=== PATIENT | male | born 1970 | race Caucasian/White ===

== ENCOUNTER → 2016-06-22 | Outpatient (CLI) | payer BC ==
[2016-06-22 13:08] VITALS: BP 134/64; PULSE 55; RESP 16; TEMP 97.7; BMI 32.5
[2016-06-22 13:58] LABS: CH 32.2; CHCM 34.8; HCT 40.4 % (39.0-53.0); HDW 2.54; HGB 13.5 gm/dL (13.0-17.5); MCH 31.1 pg (25.0-35.0); MCHC 33.5 g/dL (31.0-37.0); MCV 92.7 fL (80.0-100.0); Mean Platelet Volume 8.1; RBC 4.36 m/uL (4.30-5.90); RDW 12.5 % (11.5-15.5); WBC 6.8 k/uL (3.8-10.6)
[2016-06-22 14:10] LABS: ALT 24 U/L (21-72); AST 18 U/L (17-59); Alkaline Phosphatase 104 U/L (38-126); Anion Gap 10 mmol/L; Blood Urea Nitrogen 13 mg/dL (9-20); Calcium 9.8 mg/dL (8.4-10.2); Carbon Dioxide 31 mmol/L (22-30); Chloride 104 mmol/L (98-107); Glucose 154 mg/dL (74-99); Non-African American GFR(MDRD) >60 (>60 ml/min/1.73 sqM); Potassium 4.5 mmol/L (3.5-5.1); Sodium 145 mmol/L (137-145); Total Bilirubin 0.9 mg/dL (0.2-1.3); Total Protein 7.8 g/dL (6.3-8.2)
[2016-06-22 14:56] LABS: Vitamin B12 685 pg/mL (239-931)
--- NOTE | 2016-06-22 16:57 | P.HPBAR ---
Bariatric H&P - History & Physicial H&P Date: 06/22/16 History & Physicial: Visit/CC: Sleeve follow-up Patient initial contact: Initial weight: 102.648 kg Initial weight in pounds: 226.30 Height: 6 ft Initial BMI: 30.7 Last weight: Current weight: 109.089 kg Current weight in pounds: 240.00 Current BMI: 32.5 [place] body weight (based on NIH guidelines): 80.739 kg Excess body weight loss: The patient is a 45 year-old M who presents for Bariatric Assessment. The patient presents today for sleeve follow-up. He is doing quite well. He has had some minimal GERD. Past Medical History Past Medical History: Diabetes Mellitus, GERD/Reflux, Hyperlipidemia, Sleep Apnea/CPAP/BIPAP Additional Past Medical History / Comment(s): BRONCHOSCOPY FOR SARCOIDOSIS, GOUT , SLEEP APNEA WITH C-PAP MACHINE, CURRENTLY HAS A COUGH AND RUNNY NOSE- TESSILON PRESCRIBED BY ITALO Recio- INSTRUCTED PT TO CALL DR PACHECO AND INFORM HIM OFTHIS. PT STATES HE HAD CHESTPAIN ON 04/14 AND WENT TO [facility] AND WAS ADMITTED -STATES THEY RULED OUT HEART PROBLEMS. History of Any Multi-Drug Resistant Organisms: None Reported Past Surgical History: Orthopedic Surgery Additional Past Surgical History / Comment(s): BRONCHOSCOPY, 3 KNEE SURGERYS Past Anesthesia/Blood Transfusion Reactions: No Reported Reaction Past Psychological History: No Psychological Hx Reported Smoking Status: Never smoker Past Alcohol Use History: Occasional Past Drug Use History: None Reported - Past Family History Father Family Medical History: Cancer Additional Family Medical History / Comment(s): PROSTATE CA Surgical - Exam Vital Signs Temp Pulse Resp BP 97.7 F 55 L 16 134/64 06/22/16 13:05 06/22/16 13:05 06/22/16 13:05 06/22/16 13:05 - General well developed, no distress - Eyes PERRL - ENT normal pinna - Neck no masses - Respiratory normal expansion - Cardiovascular Rhythm: regular Results - Labs 06/22/16 13:36 06/22/16 13:36 Abnormal Lab Results - Last 24 Hours (Table) 06/22/16 Range/Units 13:36 Carbon Dioxide 31 H (22-30) mmol/L Glucose 154 H (74-99) mg/dL Diabetes panel 06/22/16 06/22/16 Range/Units 13:36 13:36 Sodium 145 (137-145) mmol/L Potassium 4.5 (3.5-5.1) mmol/L Chloride 104 (98-107) mmol/L Carbon Dioxide 31 H (22-30) mmol/L BUN 13 (9-20) mg/dL Creatinine 0.70 (0.66-1.25) mg/dL Glucose 154 H (74-99) mg/dL Hemoglobin A1c 6.0 (4.2-6.1) % Calcium 9.8 (8.4-10.2) mg/dL AST 18 (17-59) U/L ALT 24 (21-72) U/L Alkaline Phosphatase 104 (38-126) U/L Total Protein 7.8 (6.3-8.2) g/dL Albumin 4.4 (3.5-5.0) g/dL Calcium panel 06/22/16 Range/Units 13:36 Calcium 9.8 (8.4-10.2) mg/dL Albumin 4.4 (3.5-5.0) g/dL Pituitary panel 06/22/16 Range/Units 13:36 Sodium 145 (137-145) mmol/L Potassium 4.5 (3.5-5.1) mmol/L Chloride 104 (98-107) mmol/L Carbon Dioxide 31 H (22-30) mmol/L BUN 13 (9-20) mg/dL Creatinine 0.70 (0.66-1.25) mg/dL Glucose 154 H (74-99) mg/dL Calcium 9.8 (8.4-10.2) mg/dL Adrenal panel 06/22/16 Range/Units 13:36 Sodium 145 (137-145) mmol/L Potassium 4.5 (3.5-5.1) mmol/L Chloride 104 (98-107) mmol/L Carbon Dioxide 31 H (22-30) mmol/L BUN 13 (9-20) mg/dL Creatinine 0.70 (0.66-1.25) mg/dL Glucose 154 H (74-99) mg/dL Calcium 9.8 (8.4-10.2) mg/dL Total Bilirubin 0.9 (0.2-1.3) mg/dL AST 18 (17-59) U/L ALT 24 (21-72) U/L Alkaline Phosphatase 104 (38-126) U/L Total Protein 7.8 (6.3-8.2) g/dL Albumin 4.4 (3.5-5.0) g/dL Bariatric Assessment & Plan Plan: Improving morbid obesity. Patient is doing quite well has lost significant weight. GERD is minimal and will be observed. Patient is currently being treated with Prilosec. Bariatric Checklist Checklist: Plan: Checklist: EGD: 1. Hiatal hernia: 2. H. Pylori: HgbA1c: Vitamin D: Smoking: Never smoker Primary care physician referral: lai ([facility]) Psychiatry clearance: Cardiology clearance: Sleep study: Diet journal: VTE risk score: VTE risk level: Rehab needs at discharge:
== END | disposition home or self-care (01) ==
LOC: BARWHC3 12:43
PROVIDERS: ATTEND Surgery
DX: K21.9 Gastro-esophageal reflux disease without esophagitis (principal); E66.01 Morbid (severe) obesity due to excess calories; E89.1 Postprocedural hypoinsulinemia; E55.9 Vitamin D deficiency, unspecified
CPT/HCPCS: 36415; 80053; 82306; 82607; 83036; 85027; 99211

== ENCOUNTER → 2017-01-04 | Outpatient (CLI) | payer BC ==
[2017-01-04 15:25] VITALS: BP 131/72; PULSE 55; RESP 16; TEMP 97.5; BMI 32.9
--- NOTE | 2017-01-04 16:42 | P.HPBAR ---
Bariatric H&P - History & Physicial H&P Date: 01/04/17 History & Physicial: Visit/CC: sleeve follow-up Patient initial contact: Initial weight: 102.648 kg Initial weight in pounds: 226.30 Height: 6 ft Initial BMI: 30.7 Last weight: Current weight: 110.251 kg Current weight in pounds: 243.00 Current BMI: 32.9 [place] body weight (based on NIH guidelines): 80.739 kg Excess body weight loss: The patient is a 46 year-old M who presents for Bariatric Assessment. Patient presents today for sleeve gastrectomy fall. He is doing quite well. Since minimal GERD. He denies any significant dysphagia. His weight has remained stable. Past Medical History Past Medical History: Diabetes Mellitus, GERD/Reflux, Hyperlipidemia, Sleep Apnea/CPAP/BIPAP Additional Past Medical History / Comment(s): BRONCHOSCOPY FOR SARCOIDOSIS, GOUT , SLEEP APNEA WITH C-PAP MACHINE, CURRENTLY HAS A COUGH AND RUNNY NOSE- TESSILON PRESCRIBED BY ITALO Recio- INSTRUCTED PT TO CALL DR PACHECO AND INFORM HIM OFTHIS. PT STATES HE HAD CHESTPAIN ON 04/[address] [facility] AND WAS ADMITTED -STATES THEY RULED OUT HEART PROBLEMS. History of Any Multi-Drug Resistant Organisms: None Reported Past Surgical History: Orthopedic Surgery Additional Past Surgical History / Comment(s): BRONCHOSCOPY, 3 KNEE SURGERYS Past Anesthesia/Blood Transfusion Reactions: No Reported Reaction Past Psychological History: No Psychological Hx Reported Smoking Status: Never smoker Past Alcohol Use History: Occasional Past Drug Use History: None Reported - Past Family History Father Family Medical History: Cancer Additional Family Medical History / Comment(s): PROSTATE CA Surgical - Exam Vital Signs Temp Pulse Resp BP 97.5 F L 55 L 16 131/72 01/04/17 15:23 01/04/17 15:23 01/04/17 15:23 01/04/17 15:23 - General well developed, no distress - Eyes PERRL - ENT normal pinna - Respiratory normal expansion - Cardiovascular Rhythm: regular - Abdomen Abdomen: soft Bariatric Assessment & Plan Plan: Post sleeve yesterday. Patient's had no significant complaints. His GERD is minimal bleeding observed. He'll follow-up in 3 months. Bariatric Checklist Checklist: Plan: Checklist: EGD: 1. Hiatal hernia: 2. H. Pylori: HgbA1c: Vitamin D: Smoking: Never smoker Primary care physician referral: lai ([facility]) Psychiatry clearance: Cardiology clearance: Sleep study: Diet journal: VTE risk score: VTE risk level: Rehab needs at discharge:
== END | disposition home or self-care (01) ==
LOC: BARWHC3 14:52
PROVIDERS: ATTEND Surgery
DX: Z09 Encounter for follow-up examination after completed treatment for conditions other than malignant neoplasm (principal); E11.9 Type 2 diabetes mellitus without complications; K21.9 Gastro-esophageal reflux disease without esophagitis; E78.5 Hyperlipidemia, unspecified; Z98.84 Bariatric surgery status
CPT/HCPCS: 99211

== ENCOUNTER → 2017-04-26 | Outpatient (CLI) | payer BC ==
--- NOTE | 2017-04-26 18:02 | MR ---
EXAMINATION TYPE: MR lumbar spine wo con DATE OF EXAM: 04/26/2017 COMPARISON: NONE HISTORY: Radiculopathy CONTRAST: 0 mL intravenous Gadavist. TECHNIQUE: Multiplanar, multisequence images of the lumbar spine were acquired. FINDINGS: Cord terminates at the L1-L2 level. Superior endplate Schmorl's node formation is evident L1 and L2. Mild anterior loss of vertebral body height may be present L1, L2, and L3. Some posterior disc space narrowing at L2-3 is present as well as L1-2. Remaining disc heights are preserved. Disc d esiccation is present throughout the lumbar spine. L5-S1: Mild disc bulge has anterior thecal sac contact. No AP spinal canal stenosis is present. There is severe right and mild left foraminal narrowing L4-L5: Disc bulge has mild anterior thecal sac compression. This may be subtly greater into the right paracentral region. Additionally, on T2-weighted sequences there is increased signal within the bulg ing disc suggestive of an annular tear. AP spinal canal stenosis is not present. Facet hypertrophy li gamentum flavum laxity is present with some mild lateral canal narrowing. Foramen are patent. L3-L4: Disc bulge is present. This greater than left paracentral region. No AP spinal canal stenosis present. Mild facet hypertrophy and ligamentum flavum laxity is present. Neural foramen are patent. L2-L3: There is a subligamentous disc herniation extending inferior to the L3 endplate. This has mild anterior thecal sac flattening. No AP spinal canal stenosis is present. There is some extension into the right and to a lesser degree left foramen causing moderate foraminal narrowing without nerve hu t contact. L1-L2: Right paracentral disc bulge is present with mild to moderate anterior thecal sac compression. Left foramen is patent. There is mild narrowing of the right foramen. There is disc extension into t he inferior foramen as well as beyond the endplate of L2 compatible with subligamentous disc herniati on. T12-L1: No significant disc bulge or disc herniation. No spinal canal stenosis. No foraminal stenos is. IMPRESSION: 1. Disc bulge L4-5 slightly greater to the right paracentral region with mild anterior thecal sac com pression. Annular tears in the right paracentral region of this disc level. 2. L3-4 disc bulging with mild anterior thecal sac contact. 3. Subligamentous disc herniation L2-L3 with mild anterior thecal sac compression. 4. Right paracentral disc herniation with mild to moderate anterior thecal sac compression. 5. Severe right and mild left foraminal narrowing L5-S1. Additional foraminal narrowing due to mild t o moderate degree is present discussed above.
== END | disposition home or self-care (01) ==
LOC: RADMRIMAIN 09:38
PROVIDERS: ATTEND Family Medicine
DX: M99.73 Connective tissue and disc stenosis of intervertebral foramina of lumbar region (principal); M51.17 Intervertebral disc disorders with radiculopathy, lumbosacral region
CPT/HCPCS: 72148

== ENCOUNTER → 2017-06-21 | Outpatient (CLI) | payer BC ==
[2017-06-21 13:19] VITALS: BP 137/75; PULSE 50; RESP 15; TEMP 98.3; BMI 32.9
[2017-06-21 14:47] LABS: HGB 14.1 gm/dL (13.0-17.5); MCH 30.5 pg (25.0-35.0); MCHC 33.5 g/dL (31.0-37.0); MCV 91.1 fL (80.0-100.0); Mean Platelet Volume 7.8; Platelet Count 176 k/uL (150-450); RBC 4.61 m/uL (4.30-5.90); RDW 12.6 % (11.5-15.5); WBC 9.3 k/uL (3.8-10.6)
[2017-06-21 15:01] LABS: ALT 22 U/L (21-72); AST 20 U/L (17-59); Albumin 4.5 g/dL (3.5-5.0); Alkaline Phosphatase 123 U/L (38-126); Anion Gap 12 mmol/L; Blood Urea Nitrogen 17 mg/dL (9-20); Calcium 9.8 mg/dL (8.4-10.2); Carbon Dioxide 31 mmol/L (22-30); Chloride 100 mmol/L (98-107); Glucose 144 mg/dL (74-99); Potassium 4.9 mmol/L (3.5-5.1); Sodium 143 mmol/L (137-145); Total Protein 7.6 g/dL (6.3-8.2)
--- NOTE | 2017-06-21 15:18 | P.HPBAR ---
Bariatric H&P - History & Physicial H&P Date: 06/21/17 History & Physicial: Visit/CC: 3 year f/u Patient initial contact: Initial weight: 102.648 kg Initial weight in pounds: 226.30 Height: 6 ft Initial BMI: 30.7 Last weight: Current weight: 110.087 kg Current weight in pounds: 242.70 Current BMI: 32.9 [place] body weight (based on NIH guidelines): 80.739 kg Excess body weight loss: The patient is a 46 year-old M who presents for Bariatric Assessment. Patient presents today for 1 year follow-up after sleeve yesterday. He is doing quite well. He has some minimal GERD. Past Medical History Past Medical History: Diabetes Mellitus, GERD/Reflux, Hyperlipidemia, Sleep Apnea/CPAP/BIPAP Additional Past Medical History / Comment(s): BRONCHOSCOPY FOR SARCOIDOSIS, GOUT , SLEEP APNEA WITH C-PAP MACHINE, CURRENTLY HAS A COUGH AND RUNNY NOSE- TESSILON PRESCRIBED BY ITALO Recio- INSTRUCTED PT TO CALL DR PACHECO AND INFORM HIM OFTHIS. PT STATES HE HAD CHESTPAIN ON 04/14 AND WENT TO [facility] AND WAS ADMITTED -STATES THEY RULED OUT HEART PROBLEMS. History of Any Multi-Drug Resistant Organisms: None Reported Past Surgical History: Orthopedic Surgery Additional Past Surgical History / Comment(s): BRONCHOSCOPY, 3 KNEE SURGERYS Past Anesthesia/Blood Transfusion Reactions: No Reported Reaction Past Psychological History: No Psychological Hx Reported Smoking Status: Never smoker Past Alcohol Use History: Occasional Past Drug Use History: None Reported - Past Family History Father Family Medical History: Cancer Additional Family Medical History / Comment(s): PROSTATE CA Surgical - Exam Vital Signs Temp Pulse Resp BP 98.3 F 50 L 15 137/75 06/21/17 13:10 06/21/17 13:10 06/21/17 13:10 06/21/17 13:10 - General well developed, no distress - Eyes PERRL - ENT normal pinna, normal mucosa - Neck no masses - Abdomen Abdomen: soft, non tender Results - Labs 06/21/17 13:43 06/21/17 13:43 Abnormal Lab Results - Last 24 Hours (Table) 06/21/17 Range/Units 13:43 Carbon Dioxide 31 H (22-30) mmol/L Glucose 144 H (74-99) mg/dL Diabetes panel 06/21/17 Range/Units 13:43 Sodium 143 (137-145) mmol/L Potassium 4.9 (3.5-5.1) mmol/L Chloride 100 (98-107) mmol/L Carbon Dioxide 31 H (22-30) mmol/L BUN 17 (9-20) mg/dL Creatinine 0.69 (0.66-1.25) mg/dL Glucose 144 H (74-99) mg/dL Calcium 9.8 (8.4-10.2) mg/dL AST 20 (17-59) U/L ALT 22 (21-72) U/L Alkaline Phosphatase 123 (38-126) U/L Total Protein 7.6 (6.3-8.2) g/dL Albumin 4.5 (3.5-5.0) g/dL Calcium panel 06/21/17 Range/Units 13:43 Calcium 9.8 (8.4-10.2) mg/dL Albumin 4.5 (3.5-5.0) g/dL Pituitary panel 06/21/17 Range/Units 13:43 Sodium 143 (137-145) mmol/L Potassium 4.9 (3.5-5.1) mmol/L Chloride 100 (98-107) mmol/L Carbon Dioxide 31 H (22-30) mmol/L BUN 17 (9-20) mg/dL Creatinine 0.69 (0.66-1.25) mg/dL Glucose 144 H (74-99) mg/dL Calcium 9.8 (8.4-10.2) mg/dL Adrenal panel 06/21/17 Range/Units 13:43 Sodium 143 (137-145) mmol/L Potassium 4.9 (3.5-5.1) mmol/L Chloride 100 (98-107) mmol/L Carbon Dioxide 31 H (22-30) mmol/L BUN 17 (9-20) mg/dL Creatinine 0.69 (0.66-1.25) mg/dL Glucose 144 H (74-99) mg/dL Calcium 9.8 (8.4-10.2) mg/dL Total Bilirubin 1.0 (0.2-1.3) mg/dL AST 20 (17-59) U/L ALT 22 (21-72) U/L Alkaline Phosphatase 123 (38-126) U/L Total Protein 7.6 (6.3-8.2) g/dL Albumin 4.5 (3.5-5.0) g/dL Bariatric Assessment & Plan Plan: Status post sleeve discharge. His GERD symptoms are minimal will be observed. Patient had routine blood work ordered today Bariatric Checklist Checklist: Plan: Checklist: EGD: 1. Hiatal hernia: 2. H. Pylori: HgbA1c: Vitamin D: Smoking: Never smoker Primary care physician referral: Anastasia Cano ([place]) Psychiatry clearance: Cardiology clearance: Sleep study: Diet journal: VTE risk score: VTE risk level: Rehab needs at discharge:
[2017-06-21 18:58] LABS: Vitamin D 25 Hydroxy 24.2 ng/mL (30.0-100.0)
[2017-06-21 19:01] LABS: Folate, Serum >24.0 ng/mL
== END | disposition home or self-care (01) ==
LOC: BARWHC3 12:47
PROVIDERS: ATTEND Surgery
DX: Z48.815 Encounter for surgical aftercare following surgery on the digestive system (principal); K21.9 Gastro-esophageal reflux disease without esophagitis; E66.01 Morbid (severe) obesity due to excess calories; E55.9 Vitamin D deficiency, unspecified; Z68.32 Body mass index [BMI] 32.0-32.9, adult
CPT/HCPCS: 36415; 80053; 82306; 82607; 82746; 84134; 84425; 85027; 99211

== ENCOUNTER → 2018-06-20 | Outpatient (CLI) | payer BC ==
[2018-06-20 14:30] LABS: HGB 13.2 gm/dL (13.0-17.5); MCV 91.3 fL (80.0-100.0); Mean Platelet Volume 8.4; Platelet Count 168 k/uL (150-450); RBC 4.27 m/uL (4.30-5.90)
[2018-06-20 15:22] VITALS: BP 131/67; TEMP 97.6; BMI 34.2
--- NOTE | 2018-06-20 16:30 | P.HPBAR ---
Bariatric H&P - History & Physicial H&P Date: 06/20/18 History & Physicial: Visit/CC: annual sleeve f/u Patient initial contact: Initial weight: 102.648 kg Initial weight in pounds: 226.30 Height: 6 ft Initial BMI: 30.7 Last weight: Current weight: 114.305 kg Current weight in pounds: 252.00 Current BMI: 34.2 [place] body weight (based on NIH guidelines): 80.739 kg Excess body weight loss: The patient is a 47 year-old M who presents for Bariatric Assessment. Patient presents today for annual sleeve gastrectomy follow-up. He has gained 10 pounds since last year. He has had some minimal GERD. He denies any significant dysphagia. Past Medical History Past Medical History: Diabetes Mellitus, GERD/Reflux, Hyperlipidemia, Sleep Apnea/CPAP/BIPAP Additional Past Medical History / Comment(s): BRONCHOSCOPY FOR SARCOIDOSIS, GOUT, SLEEP APNEA WITH C-PAP MACHINE, CURRENTLY HAS A COUGH AND RUNNY NOSE- TESSILON PRESCRIBED BY ITALO Recio- INSTRUCTED PT TO CALL DR ZHENG AND INFORM HIM OFTHIS. PT STATES HE HAD CHESTPAIN ON 04/14 AND WENT TO [facility] AND WAS ADMITTED -STATES THEY RULED OUT HEART PROBLEMS. History of Any Multi-Drug Resistant Organisms: None Reported Past Surgical History: Bariatric Surgery, Orthopedic Surgery Additional Past Surgical History / Comment(s): BRONCHOSCOPY, 3 KNEE SURGERYS, gastric sleeve (Dr. Zheng) Past Anesthesia/Blood Transfusion Reactions: No Reported Reaction Past Psychological History: No Psychological Hx Reported Smoking Status: Never smoker Past Alcohol Use History: Occasional Past Drug Use History: None Reported - Past Family History Father Family Medical History: Cancer Additional Family Medical History / Comment(s): PROSTATE CA Surgical - Exam Vital Signs Temp BP 97.6 F 131/67 06/20/18 13:28 06/20/18 13:28 - General well developed, well nourished, no distress - Eyes PERRL - Abdomen Abdomen: soft, non tender Results - Labs 06/20/18 14:00 Abnormal Lab Results - Last 24 Hours (Table) 06/20/18 Range/Units 14:00 RBC 4.27 L (4.30-5.90) m/uL Bariatric Assessment & Plan Plan: Status post sleeve gastrectomy. Patient's girth is minimal be observed. Patient will focus on dietary changes for weight loss. Bariatric Checklist Checklist: Plan: Checklist: EGD: 1. Hiatal hernia: 2. H. Pylori: HgbA1c: Vitamin D: Smoking: Never smoker Primary care physician referral: Anastasia Cano ([place]) Psychiatry clearance: Cardiology clearance: Sleep study: Diet journal: VTE risk score: VTE risk level: Rehab needs at discharge:
[2018-06-20 19:27] LABS: Vitamin D 25 Hydroxy 30.7 ng/mL (30.0-100.0)
[2018-06-20 19:34] LABS: Albumin 4.5 g/dL (3.80-4.90); Albumin/Globulin Ratio 2.05 (1.60-3.17); Anion Gap 7.3 mmol/L (4.00-12.00); Calcium 9.1 mg/dL (8.7-10.3); Carbon Dioxide 26.7 mmol/L (21.6-31.8); Globulin 2.2 g/dL (1.6-3.3); Potassium 4.4 mmol/L (3.5-5.5); Total Bilirubin 0.6 mg/dL (0.2-1.2); Total Protein 6.7 g/dL (6.2-8.2)
== END | disposition home or self-care (01) ==
LOC: BARWHC3 12:54
PROVIDERS: ATTEND Surgery
DX: Z09 Encounter for follow-up examination after completed treatment for conditions other than malignant neoplasm (principal); E66.01 Morbid (severe) obesity due to excess calories; K21.9 Gastro-esophageal reflux disease without esophagitis; E11.9 Type 2 diabetes mellitus without complications; E55.9 Vitamin D deficiency, unspecified; G47.30 Sleep apnea, unspecified; Z99.89 Dependence on other enabling machines and devices; Z98.84 Bariatric surgery status; Z98.890 Other specified postprocedural states; Z68.34 Body mass index [BMI] 34.0-34.9, adult
CPT/HCPCS: 80053; 82306; 82607; 85027; 99211

== ENCOUNTER 2018-08-15 04:37 | Observation (INO) | payer BC ==
[2018-08-15] MEDS ORDERED: NITROGLYCERIN SL TABS 0.4 MG TAB SUBLINGUAL STA (05:03)
[2018-08-15] MEDS ORDERED: SODIUM CHLORIDE 0.9% 1,000 ML IV STA (05:03)
[2018-08-15] MEDS ORDERED: ASPIRIN 81 MG PO STA (05:03)
--- NOTE | 2018-08-15 05:12 | ED ---
Chest Pain HPI - General Chief Complaint: Chest Pain Stated Complaint: Chest Pain Time Seen by Provider: 08/15/18 05:03 Source: patient Mode of arrival: ambulatory Limitations: no limitations - History of Present Illness Initial Comments: Itz is a pleasant 47-year-old man who presents the emergency department today for evaluation of chest pain. Patient reports that on Wednesday he was in his usual state of health, he was able to participate in a golf game with his brother. He reports that after returning home from golf he began feeling some pain in his chest which is atypical from him. He didn't have any lightheadedness, diaphoresis or palpitations. Patient reports that he went to bed that night and was able to sleep and seemed to resolve. 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 Patient reports that he has to walk a lot at work and while at work he began having pain that was radiating to his arms and his jaw. Patient became concerned because he doesn't have an older brother who had a fatal [place] at the age of 49 decided to come the ER for further evaluation. Patient does have a history of hypertension, hyperlipidemia, diabetes as well as morbid obesity, patient did have a weight loss surgery a number of years ago and is down 100 pounds but remains obese with a BMI of 32. He has never smoker. He does have a strong family history of cardiac disease. - Related Data Home Medications Medication Instructions Recorded Confirmed Calcium Citrate 250 mg PO HS 09/30/15 08/15/18 Cholecalciferol [Vitamin D3] 5,000 unit PO HS 09/30/15 08/15/18 Cyanocobalamin [Vitamin B-12] 500 mcg PO HS 09/30/15 08/15/18 Multivitamin [Multivitamins Adult 1 tab PO HS 06/25/16 08/15/18 Gummies] Pioglitazone [Actos] 15 mg PO HS 06/25/16 08/15/18 Febuxostat [Uloric] 40 mg PO HS 06/21/17 08/15/18 Simvastatin [Zocor] 20 mg PO HS 08/15/18 08/15/18 Allergies Allergy/AdvReac Type Severity Reaction Status Date / Time No Known Allergies Allergy Verified 08/15/18 06:25 Review of Systems ROS Statement: Those systems with pertinent positive or pertinent negative responses have been documented in the HPI. ROS Other: All systems not noted in ROS Statement are negative. EKG Findings - EKG Comments: EKG Findings:: EKG was obtained due to complaint of chest pain, EKG obtained at 4:53 AM, rate is 50, sinus bradycardia there is a leftward axis there is NC 196, QRS prolonged at 1:30, QTC is [address] elevations or depressions is no evidence of acute ischemia or infarction. EKG is suggestive of left ventricular hypertrophy. Past Medical History Past Medical History: Diabetes Mellitus, GERD/Reflux, Hyperlipidemia, Sleep Apnea/CPAP/BIPAP Additional Past Medical History / Comment(s): BRONCHOSCOPY FOR SARCOIDOSIS, GOUT, SLEEP APNEA WITH C-PAP MACHINE, CURRENTLY HAS A COUGH AND RUNNY NOSE- TESSILON PRESCRIBED BY ITALO Recio- INSTRUCTED PT TO CALL DR ZHENG AND INFORM HIM OFTHIS. PT STATES HE HAD CHESTPAIN ON 04/14 AND WENT TO [facility] AND WAS ADMITTED -STATES THEY RULED OUT HEART PROBLEMS. History of Any Multi-Drug Resistant Organisms: None Reported Past Surgical History: Bariatric Surgery, Orthopedic Surgery Additional Past Surgical History / Comment(s): BRONCHOSCOPY, 3 KNEE SURGERYS, gastric sleeve (Dr. Zheng) Past Anesthesia/Blood Transfusion Reactions: No Reported Reaction Past Psychological History: No Psychological Hx Reported Smoking Status: Never smoker Past Alcohol Use History: Occasional Past Drug Use History: None Reported - Past Family History Father Family Medical History: Cancer Additional Family Medical History / Comment(s): PROSTATE CA General Exam - General Exam Comments Initial Comments: Physical Exam GENERAL: Patient is well-developed and well-nourished. Clammy appearance HENT: Normocephalic, Atraumatic. EYES: PERRL, EOMI PULMONARY: Unlabored respirations. No audible rales rhonchi or wheezing was noted. CARDIOVASCULAR: There is a regular rate and rhythm without any murmurs or rubs. ABDOMEN: Soft and nontender with normal bowel sounds. SKIN: Cool, clammy : Deferred NEUROLOGIC: Patient is alert and oriented x3. Moving all extremities spontaneously MUSCULOSKELETAL: Normal extremities with adequate strength and full range of motion. No lower extremity swelling or edema. No calf tenderness. 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 [employer] ] Respiratory 20 17 Rate Blood Pressure 132/78 O2 Sat by Pulse 98 Oximetry 08/15/18 06:29 Temperature Pulse Rate 53 L Pulse Rate [ [employer]ental [employer] ] Respiratory 20 Rate Blood Pressure 109/62 O2 Sat by Pulse 100 Oximetry Chest Pain MDM - MDM The patient was seen and evaluated, history is obtained from the patient This is a 47-year-old woman with multiple risk factors for cardiac disease presenting with left-sided chest pain radiating into his arms and jaw, patient had a brother at the age of 49 from [place] A full cardiac workup will be ordered EKG was obtained and shows left ventricular hypertrophy with widening QRS No previous EKG available for comparison Disposition Clinical Impression: Chest pain, HTN (hypertension), HLD (hyperlipidemia), Diabetes, Obesity (BMI 30.0-34.9) Disposition: ADMITTED IP TO THIS HOSP Condition: Stable Is patient prescribed a controlled substance at d/c from ED?: No
[2018-08-15] MEDS ORDERED: NITROGLYCERIN SL TABS 0.4 MG TAB SUBLINGUAL PRN (05:27)
[2018-08-15 05:31] LABS: Basophils # (A) 0.1 k/uL (0-0.2); Basophils % (A) 1 %; Eosinophils # (A) 0.3 k/uL (0-0.7); Eosinophils % (A) 4 %; HCT 40.1 % (39.0-53.0); HGB 13.6 gm/dL (13.0-17.5); Lymphocytes # (A) 2.8 k/uL (1.0-4.8); Lymphocytes % (A) 32 %; MCH 30.5 pg (25.0-35.0); MCHC 33.8 g/dL (31.0-37.0); MCV 90.3 fL (80.0-100.0); Mean Platelet Volume 7.4; Monocytes # (A) 0.5 k/uL (0-1.0); Monocytes % (A) 6 %; Neutrophils # (A) 4.9 k/uL (1.3-7.7); Neutrophils % (A) 55 %; Platelet Count 164 k/uL (150-450); RBC 4.44 m/uL (4.30-5.90); RDW 12.5 % (11.5-15.5); WBC 8.8 k/uL (3.8-10.6)
[2018-08-15 05:40] LABS: ALT 20 U/L (21-72); AST 24 U/L (17-59); African American GFR (CKD) >90 (>60 ml/min/1.73 sqM); Albumin 4.4 g/dL (3.5-5.0); Alkaline Phosphatase 129 U/L (38-126); Anion Gap 9 mmol/L; Blood Urea Nitrogen 19 mg/dL (9-20); Calcium 9.1 mg/dL (8.4-10.2); Carbon Dioxide 26 mmol/L (22-30); Chloride 105 mmol/L (98-107); Glucose 144 mg/dL (74-99); Potassium 3.9 mmol/L (3.5-5.1); Sodium 140 mmol/L (137-145); Total Bilirubin 0.6 mg/dL (0.2-1.3); Total Protein 7.3 g/dL (6.3-8.2)
[2018-08-15 05:41] LABS: Partial Thromboplastin Time 27.5 sec (22.0-30.0); Prothrombin Time 10.3 sec (9.0-12.0)
--- NOTE | 2018-08-15 06:12 | XR ---
INDICATION: Chest pain COMPARISON: CXR 07/08/18 FINDINGS: Frontal and lateral views of the chest are submitted for interpretation. The lungs are clear. There is no pleural effusion or pneumothorax. Heart size and pulmonary vascularity are normal. Regional skeleton is intact. IMPRESSION: No acute cardiopulmonary disease.
[2018-08-15 06:48] VITALS: BMI 32.5
[2018-08-15 07:21] LABS: Glucose,Whole Blood 143 mg/dL (75-99)
[2018-08-15] MEDS: INSULIN ASPART (NovoLOG) 100 UNIT/ML VIAL SQ SCH ×4 (08:49→19:59)
[2018-08-15] MEDS ORDERED: ATORVASTATIN 10 MG TAB PO SCH (09:00)
[2018-08-15] MEDS ORDERED: SODIUM CHLORIDE 0.9% 1,000 ML in EMPTY BAG 1 BAG IV ONE (10:05)
[2018-08-15] MEDS ORDERED: ALPRAZolam 0.25 MG TAB PO PRN (10:05)
[2018-08-15] MEDS ORDERED: ALPRAZolam 0.5 MG TAB PO PRN (10:05)
[2018-08-15] MEDS ORDERED: ATORVASTATIN 80 MG TAB PO STA (10:07)
--- NOTE | 2018-08-15 10:07 | ECHOF ---
Referral Reason:high risk chest pain MEASUREMENTS -------- HEIGHT: 180.3 cm WEIGHT: 108.9 kg BP: 109/62 RVIDd: 2.9 cm (< 3.3) IVSd: 0.9 cm (0.6 - 1.1) LVIDd: 5.2 cm (3.9 - 5.3) LVPWd: 1.2 cm (0.6 - 1.1) IVSs: 1.5 cm LVIDs: 3.3 cm LVPWs: 1.6 cm LAESV Index (A-L): 23.16 ml/m Ao Diam: 2.8 cm (2.0 - 3.7) AV Cusp: 2.1 cm (1.5 - 2.6) LA Diam: 3.5 cm (2.7 - 3.8) MV EXCURSION: 16.659 mm (> 18.000) MV EF SLOPE: 75 mm/s (70 - 150) EPSS: 0.5 cm MV E Guy: 1.05 m/s MV DecT: 238 ms MV A Guy: 0.83 m/s MV E/A Ratio: 1.27 AV maxP.59 mmHg AV meanP.91 mmHg RAP: 5.00 mmHg RVSP: 20.55 mmHg FINDINGS -------- Resting bradycardia (HR<60bpm). This was a technically good study. The left ventricular size is normal. There is borderline concentric left ventricular hypertrophy. Overall left ventricular systolic function is normal with, an EF between 55 - 60 %. The diastolic filling pattern is normal for the age of the patient. The right ventricle is normal in size. The left atrial size is normal. Normal LA size by volume 22+/-6 ml/m2. The right atrial size is normal. Interatrial and interventricular septum intact. The aortic valve is trileaflet and appears structurally normal. Peak/mean gradient across the Aorti c Valve is 15.59mmHg / 8.91mmHg. The mitral valve is normal. There is trace mitral regurgitation. The tricuspid valve appears structurally normal. Mild tricuspid regurgitation present. Right vent ricular systolic pressure is normal at < 35 mmHg. There is no pulmonic regurgitation present. The aortic root size is normal. Normal inferior vena cava with normal inspiratory collapse consistent with estimated right atrial pre ssure of 5 mmHg. There is no pericardial effusion. CONCLUSIONS -------- 1. Resting bradycardia (HR<60bpm). 2. This was a technically good study. 3. The left ventricular size is normal. 4. There is borderline concentric left ventricular hypertrophy. 5. Overall left ventricular systolic function is normal with, an EF between 55 - 60 %. 6. The diastolic filling pattern is normal for the age of the patient. 7. The right ventricle is normal in size. 8. The left atrial size is normal. 9. Normal LA size by volume 22+/-6 ml/m2. 10. The right atrial size is normal. 11. Interatrial and interventricular septum intact. 12. The aortic valve is trileaflet and appears structurally normal. 13. Peak/mean gradient across the Aortic Valve is 15.59mmHg / 8.91mmHg. 14. The mitral valve is normal. 15. There is trace mitral regurgitation. 16. The tricuspid valve appears structurally normal. 17. Mild tricuspid regurgitation present. 18. Right ventricular systolic pressure is normal at < 35 mmHg. 19. There is no pulmonic regurgitation present. 20. The aortic root size is normal. 21. Normal inferior vena cava with normal inspiratory collapse consistent with estimated right atrial pressure of 5 mmHg. 22. There is no pericardial effusion. TEACHER DRAMA: Dang Trevino RDCS
--- NOTE | 2018-08-15 10:59 | P.CRDCN ---
History of Present Illness History of present illness: This is a pleasant 47-year-old male past medical history significant for diabetes mellitus, dyslipidemia, obstructive sleep apnea and gastroesophageal reflux disease. Denies prior history of coronary artery disease and does not follow with a club car attendant for any reason. He has a brother who suffered a heart attack in his late 40s causing his . We have been asked to see him in consultation secondary to chest discomfort. He states he spent all day Wednesday coughing and his usual state of health with no chest discomfort. After getting home that evening around 11:00 he started feeling a heavy sensation in the left precordial region that radiated to the left neck and jaw. He denies associated shortness of breath, dizziness, nausea, vomiting, palpitations or diaphoresis. He went to bed Wednesday night with ongoing chest discomfort. He woke up Wednesday in the chest discomfort had subsided. 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 Similar presentation that was on Wednesday with heavy sensation in the left precordial region that again radiated to the left neck and jaw. He again had no associated symptoms with his chest discomfort. Upon arrival to the emergency department he continued to have chest discomfort was given sublingual nitroglycerin and his pain has subsided. He stated no further symptoms of chest discomfort since then. EKG reveals sinus mechanism, left axis deviation heart rate of 50. Chest x-ray is negative for an acute cardiopulmonary process. Laboratory data reviewed, WBC 8.8, hemoglobin 13.6, platelets 164, sodium 140, potassium 3.9, creatinine 0.71 with a GFR greater than 90, magnesium 2.0, cardiac enzymes negative 1. Current cardiac medications include simvastatin 20 mg daily. Echocardiogram obtained reveals preserved LV systolic function with ejection fraction 55-60%, evidence of aortic stenosis with a mean gradient across the valve of 8 mmHg, mild tricuspid regurgitation noted. Patient states he underwent a stress test approximately 5-6 years ago that he states was normal. At the time of my exam: CONSTITUTIONAL: Denies fever. Denies chills. EYES: Denies blurred vision. Denies vision changes. Denies eye pain. EARS, NOSE, MOUTH & THROAT: Denies headache. Denies sore throat. Denies ear pain. CARDIOVASCULAR: Denies chest pain. Denies shortness of breath. Denies orthopnea. Denies PND. Denies palpitations. RESPIRATORY: Denies cough. GASTROINTESTINAL: Denies abdominal pain. Denies diarrhea. Denies constipation. Denies nausea. Denies vomiting. MUSCULOSKELETAL: Denies myalgias. INTEGUMENTARY: Denies pruitis. Denies rash. NEUROLOGIC: Denies numbness. Denies tingling. Denies weakness. PSYCHIATRIC: Denies anxiety. Denies depression. ENDOCRINE: Denies fatigue. Denies weight change. Denies polydipsia. Denies polyurina. GENITOURINARY: Denies burning, hematuria or urgency with micturation. HEMATOLOGIC: Denies history of anemia. Denies bleeding. Blood pressure 122/69 heart rate 48 afebrile maintaining oxygen saturation on room air GENERAL: This is a 47-year-old male in no apparent distress at the time of my examination. HEENT: Head is atraumatic, normocephalic. Pupils are equal, round. Sclerae anicteric. Conjunctivae are clear. Mucous membranes of the mouth are moist. Neck is supple. There is no jugular venous distention. No carotid bruit is heard. LUNGS: Clear to auscultation no wheezes, rales or rhonchi. No chest wall tenderness is noted on palpation or with deep breathing. HEART: Regular rate and rhythm with systolic ejection murmur at the left sternal border, no rubs or gallops. S1 and S2 heard. ABDOMEN: Soft, nontender. Bowel sounds are heard. No organomegaly noted. EXTREMITIES: No evidence of peripheral edema and no calf tenderness noted. VASCULAR: Radial and dorsalis pedis pulses palpated, no evidence of clubbing. NEUROLOGIC: Patient is awake, alert and oriented x3. ASSESSMENT Chest discomfort suggestive of unstable angina Valvular heart disease, mild aortic stenosis. Diabetes mellitus Dyslipidemia Obstructive sleep apnea History of premature coronary artery disease and his brother PLAN Echocardiogram has been obtained and reviewed. Recommend proceeding with coronary angiography to assess for obstructive coronary artery disease. I have discussed the risks, benefits and alternative therapies for the above-mentioned procedure and for both sedation/analgesia as well as necessary blood product administration, if indicated, as they pertain to this patient. The patient has indicated understanding and acceptance of the risks and procedures discussed. Questions have been answered appropriately. The patient and his are agreeable to move forward with the above stated procedure. Further recommendations to follow based upon clinical course. Thank you kindly for this consultation. Nurse Practitioner note has been reviewed, I agree with a documented findings and plan of care. Patient was seen and examined. Past Medical History Past Medical History: Diabetes Mellitus, GERD/Reflux, Hyperlipidemia, Sleep Apnea/CPAP/BIPAP Additional Past Medical History / Comment(s): BRONCHOSCOPY FOR SARCOIDOSIS, GOUT, SLEEP APNEA WITH C-PAP MACHINE, CURRENTLY HAS A COUGH AND RUNNY NOSE- TESSILON PRESCRIBED BY ITALO Recio- INSTRUCTED PT TO CALL DR ZHENG AND INFORM HIM OFTHIS. PT STATES HE HAD CHESTPAIN ON 04/14 AND WENT TO [facility] AND WAS ADMITTED -STATES THEY RULED OUT HEART PROBLEMS. History of Any Multi-Drug Resistant Organisms: None Reported Past Surgical History: Bariatric Surgery, Orthopedic Surgery Additional Past Surgical History / Comment(s): BRONCHOSCOPY, 3 KNEE SURGERYS, gastric sleeve (Dr. Zheng) Past Anesthesia/Blood Transfusion Reactions: No Reported Reaction Past Psychological History: No Psychological Hx Reported Smoking Status: Never smoker Past Alcohol Use History: Occasional Past Drug Use History: None Reported - Past Family History Father Family Medical History: Cancer Additional Family Medical History / Comment(s): PROSTATE CA Medications and Allergies Home Medications Medication Instructions Recorded Confirmed Type Calcium Citrate 250 mg PO HS 09/30/15 08/15/18 History Cholecalciferol [Vitamin D3] 5,000 unit PO HS 09/30/15 08/15/18 History Cyanocobalamin [Vitamin B-12] 500 mcg PO HS 09/30/15 08/15/18 History Multivitamin [Multivitamins Adult 1 tab PO HS 06/25/16 08/15/18 History Gummies] Pioglitazone [Actos] 15 mg PO HS 06/25/16 08/15/18 History Febuxostat [Uloric] 40 mg PO HS 06/21/17 08/15/18 History Simvastatin [Zocor] 20 mg PO HS 08/15/18 08/15/18 History Allergies Allergy/AdvReac Type Severity Reaction Status Date / Time No Known Allergies Allergy Verified 08/15/18 06:25 Physical Exam Vitals: Vital Signs Temp Pulse Pulse Pulse Resp BP BP 08/15/18 08:00 97.5 F L 48 L 16 122/69 08/15/18 06:29 53 L 20 109/62 08/15/18 06:21 17 07/01/19 05:30 53 L 08/15/18 04:41 97.4 F L 51 L 20 132/78 Pulse Ox 08/15/18 08:00 99 08/15/18 06:29 100 08/15/18 06:21 08/15/18 05:30 08/15/18 04:41 98 Intake and Output 08/14/18 08/15/18 08/15/18 22:59 06:59 14:59 Intake Total 1000 Balance 1000 Intake: Amount of Fluid Infused ( 1000 ml) Other: # Voids 1 Weight 108.862 kg Results 08/15/18 05:17 08/15/18 05:17 Cardiac Enzymes 08/15/18 08/15/18 Range/Units 05:17 05:17 AST 24 (17-59) U/L Troponin I <0.012 (0.000-0.034) ng/mL Coagulation 08/15/18 Range/Units 05:17 PT 10.3 (9.0-12.0) sec APTT 27.5 (22.0-30.0) sec CBC 08/15/18 Range/Units 05:17 WBC 8.8 (3.8-10.6) k/uL RBC 4.44 (4.30-5.90) m/uL Hgb 13.6 (13.0-17.5) gm/dL Hct 40.1 (39.0-53.0) % Plt Count 164 (150-450) k/uL Comprehensive Metabolic Panel 08/15/18 Range/Units 05:17 Sodium 140 (137-145) mmol/L Potassium 3.9 (3.5-5.1) mmol/L Chloride 105 (98-107) mmol/L Carbon Dioxide 26 (22-30) mmol/L BUN 19 (9-20) mg/dL Creatinine 0.71 (0.66-1.25) mg/dL Glucose 144 H (74-99) mg/dL Calcium 9.1 (8.4-10.2) mg/dL AST 24 (17-59) U/L ALT 20 L (21-72) U/L Alkaline Phosphatase 129 H (38-126) U/L Total Protein 7.3 (6.3-8.2) g/dL Albumin 4.4 (3.5-5.0) g/dL Current Medications Generic Name Dose Route Start Last Admin Trade Name Freq PRN Reason Stop Dose Admin Allopurinol 200 mg 08/15/18 09:00 Zyloprim PO DAILY [facility] Aspirin 325 mg 08/16/18 09:00 Aspirin PO DAILY [facility] Atorvastatin Calcium 10 mg 08/15/18 09:00 Lipitor PO DAILY [facility] Insulin Aspart 0 unit 08/15/18 07:30 08/15/18 08:49 Novolog SQ Not Given ACHS [facility] Protocol Nitroglycerin 0.4 mg 08/15/18 05:27 Nitrostat SUBLINGUAL Q5M PRN Chest Pain Intake and Output 08/14/18 08/15/18 08/15/18 22:59 06:59 14:59 Intake Total 1000 Balance 1000 Intake: Amount of Fluid Infused ( 1000 ml) Other: # Voids 1 Weight 108.862 kg 08/15/18 05:17 08/15/18 05:17
[2018-08-15] MEDS: ALLOPURINOL 100 MG TAB PO SCH (11:50)
[2018-08-15 11:55] LABS: Glucose,Whole Blood 142 mg/dL (75-99)
[2018-08-15 16:54] LABS: Glucose,Whole Blood 155 mg/dL (75-99)
--- NOTE | 2018-08-15 17:15 | P.HPIM ---
History of Present Illness Chief Complaint: chest pain this is a very pleasant 47-year-old gentleman with a past medical history significant for sleep apnea, GERD, dyslipidemia, diabetes comes in with complaints of chest pain. Patient says that he's been having coughing for the past few days. Yesterday at about 11 PM at night he started feeling heavy sensation in the left side of the chest which is radiating to his left neck and jaw. He had this symptoms the day before as well which prompted him to come to the ER for further evaluation and management. Patient denied any association shortness of breath, no diaphoresis, no racing heart, no nausea and vomiting, no diarrhea constipation, no abdominal pain, no tingling numbness on his ex tremities, and additional rest. Patient says that he was given nitroglycerin in the ER and the pain went away. At the time examination the patient was having no pain and he was sitting comfortably and was asking questions, and comfortably. ER course-patient's vitals were stable. Labwork was done which showed WBC 8.8 hemoglobin 13.6 platelets 164 sodium 140 potassium 3.9 creatinine 0.71 GFR more than 90 tropes were negative EKG shows no acute changes and left axis deviation. Chest x-ray was negative for any acute process. Patient was thus admitted to the hospitalist service a further evaluation and management with cardiology consult. Review of Systems All systems: negative Past Medical History Past Medical History: Diabetes Mellitus, GERD/Reflux, Hyperlipidemia, Sleep Apnea/CPAP/BIPAP Additional Past Medical History / Comment(s): BRONCHOSCOPY FOR SARCOIDOSIS, GOUT, SLEEP APNEA WITH C-PAP MACHINE, CURRENTLY HAS A COUGH AND RUNNY NOSE- TESSILON PRESCRIBED BY ITALO Recio- INSTRUCTED PT TO CALL DR ZHENG AND INFORM HIM OFTHIS. PT STATES HE HAD CHESTPAIN ON 04/14 AND [facility] AND WAS ADMITTED -STATES THEY RULED OUT HEART PROBLEMS. History of Any Multi-Drug Resistant Organisms: None Reported Past Surgical History: Bariatric Surgery, Orthopedic Surgery Additional Past Surgical History / Comment(s): BRONCHOSCOPY, 3 KNEE SURGERYS, gastric sleeve (Dr. Zheng) Past Anesthesia/Blood Transfusion Reactions: No Reported Reaction Past Psychological History: No Psychological Hx Reported Smoking Status: Never smoker Past Alcohol Use History: Occasional Past Drug Use History: None Reported - Past Family History Father Family Medical History: Cancer Additional Family Medical History / Comment(s): PROSTATE CA Medications and Allergies Home Medications Medication Instructions Recorded Confirmed Type Calcium Citrate 250 mg PO HS 09/30/15 08/15/18 History Cholecalciferol [Vitamin D3] 5,000 unit PO HS 09/30/15 08/15/18 History Cyanocobalamin [Vitamin B-12] 500 mcg PO HS 09/30/15 08/15/18 History Multivitamin [Multivitamins Adult 1 tab PO HS 06/25/16 08/15/18 History Gummies] Pioglitazone [Actos] 15 mg PO HS 06/25/16 08/15/18 History Febuxostat [Uloric] 40 mg PO HS 06/21/17 08/15/18 History Simvastatin [Zocor] 20 mg PO HS 08/15/18 08/15/18 History Allergies Allergy/AdvReac Type Severity Reaction Status Date / Time No Known Allergies Allergy Verified 08/15/18 06:25 Physical Exam Vitals: Vital Signs Temp Pulse Pulse Pulse Resp BP BP 08/15/18 15:56 97.5 F L 51 L 18 120/71 08/15/18 11:42 97.3 F L 48 L 17 110/68 08/15/18 08:00 97.5 F L 48 L 16 122/69 08/15/18 06:29 53 L 20 109/62 08/15/18 06:21 17 08/15/18 05:30 53 L 08/15/18 04:41 97.4 F L 51 L 20 132/78 Pulse Ox 08/15/18 15:56 98 08/15/18 11:42 98 08/15/18 08:00 99 08/15/18 06:29 100 08/15/18 06:21 08/15/18 05:30 08/15/18 04:41 98 Intake and Output 08/15/18 08/15/18 08/15/18 06:59 14:59 22:59 Intake Total 1000 Balance 1000 Intake: Amount of Fluid Infused ( 1000 ml) Other: # Voids 1 Weight 108.862 kg On exam, alert and oriented x3. HEENT: Conjunctivae normal. eyes normal. NECK: No JVD. No thyroid enlargement. No LNs CARDIOVASCULAR: S1-S2 positive RESPIRATION: Breath sounds diminished in the bases. No rhonchi or crackles. No bronchial breathing. ABDOMEN: Soft, nontender . No guarding. no masses palpable. No ascites, No hepatosplenomegaly.Bowel sounds heard. LEGS: No edema. no swelling NERVOUS SYSTEM: Cranial N 2-12 grossly normal. Moves all 4 limbs. No focal deficits. No sensory deficit. No signs of cerebellar dysfucntion. Skin: no ulcer no rash Results CBC & Chem 7: 08/15/18 05:17 08/15/18 05:17 Labs: Abnormal Lab Results - Last 24 Hours (Table) 08/15/18 08/15/18 08/15/18 Range/Units 05:17 07:20 11:54 Glucose 144 H (74-99) mg/dL POC Glucose (mg/dL) 143 H 142 H (75-99) mg/dL ALT 20 L (21-72) U/L Alkaline Phosphatase 129 H (38-126) U/L 08/15/18 Range/Units 16:38 Glucose (74-99) mg/dL POC Glucose (mg/dL) 155 H (75-99) mg/dL ALT (21-72) U/L Alkaline Phosphatase (38-126) U/L Thrombosis Risk Factor Assmnt - Choose All That Apply Each Factor Represents 1 point: Age 41-60 years, Obesity (BMI >25) Thrombosis Risk Factor Assessment Total Risk Factor Score: 2 Thrombosis Risk Factor Assessment Level: Low Risk Assessment and Plan Assessment: - unstable angina - Diabetes mellitus - Hyperlipidemia - Sleep apnea - GERD Plan - We'll admit the patient MedSurg with telemetry - Cardiology on board recommending cardiac cath. - Patient nothing by mouth after midnight - Continue medications - DVT and GI prophylaxis - We will order for lab work in the morning - Patient is an observation - Is full code Time with Patient: Greater than 30
[2018-08-15 19:57] LABS: Glucose,Whole Blood 110 mg/dL (75-99)
[2018-08-15] MEDS ORDERED: ACETAMINOPHEN TAB 325 MG TAB PO PRN (20:10)
[2018-08-16] MEDS: ALLOPURINOL 100 MG TAB PO SCH (06:04)
[2018-08-16] MEDS: INSULIN ASPART (NovoLOG) 100 UNIT/ML VIAL SQ SCH ×2 (06:05→12:26)
[2018-08-16 06:50] LABS: Glucose,Whole Blood 135 mg/dL (75-99)
[2018-08-16 07:51] VITALS: TEMP 98.1
[2018-08-16 08:03] LABS: HCT 35.8 % (39.0-53.0); HGB 12.3 gm/dL (13.0-17.5); MCH 31.3 pg (25.0-35.0); MCHC 34.3 g/dL (31.0-37.0); MCV 91.4 fL (80.0-100.0); Mean Platelet Volume 7.7; Platelet Count 157 k/uL (150-450); RBC 3.92 m/uL (4.30-5.90); RDW 12.5 % (11.5-15.5); WBC 7.5 k/uL (3.8-10.6)
[2018-08-16 08:36] LABS: African American GFR (CKD) >90 (>60 ml/min/1.73 sqM); Anion Gap 8 mmol/L; Blood Urea Nitrogen 12 mg/dL (9-20); Calcium 8.6 mg/dL (8.4-10.2); Carbon Dioxide 27 mmol/L (22-30); Chloride 106 mmol/L (98-107); Cholesterol 144 mg/dL (<200); Glucose 130 mg/dL (74-99); HDL Cholesterol 39 mg/dL (40-60); LDL Cholesterol,Calculated 72 mg/dL (0-99); Potassium 4.1 mmol/L (3.5-5.1); Sodium 141 mmol/L (137-145); Triglycerides 164 mg/dL (<150)
[2018-08-16] MEDS ORDERED: ATORVASTATIN 10 MG TAB PO SCH (09:00)
[2018-08-16] MEDS ORDERED: ASPIRIN 325 MG TAB PO SCH (09:00)
[2018-08-16] MEDS ORDERED: IV FLUID CONTINUATION 1,000 ML IV ONE (10:45)
[2018-08-16] MEDS ORDERED: fentaNYL (PF) 50 MCG/ML 2 ML AMP ONE (10:59)
[2018-08-16] MEDS ORDERED: MIDAZOLAM (PF) 2 MG/2 ML VIAL IVP ONE (11:00)
[2018-08-16] MEDS ORDERED: fentaNYL (PF) 50 MCG/ML 2 ML AMP IVP ONE (11:00)
[2018-08-16] MEDS ORDERED: LIDOCAINE 1% INJ 10MG/ML (20 ML MDV) SQ ONE (11:05)
[2018-08-16] MEDS ORDERED: IOPAMIDOL-370 125ML BTL INJ ONE (11:23)
[2018-08-16] MEDS ORDERED: RX INFO: IV CONTRAST WAS GIVEN 1 EACH MISC MISCELLANE PRN (11:27)
[2018-08-16 11:46] VITALS: RESP 14
[2018-08-16 11:57] LABS: Glucose,Whole Blood 143 mg/dL (75-99)
--- NOTE | 2018-08-16 12:15 | CC ---
CARDIAC CATHETERIZATION REPORT Mr. Birmingham is a 47-year-old gentleman who was admitted with recurrent chest pains at rest suggestive of unstable angina. This patient has multiple risk factors including strong family history of diabetes. In view of that, the patient was recommended to have a cardiac catheterization for definitive diagnosis. PROCEDURE: The right groin was prepped and draped in the usual manner and the right femoral artery was entered using Seldinger technique with ultrasound guidance and micropuncture needle. A #6-Uzbek sheath was placed in. Selective coronary angiography was then performed in multiple projections. Sheath was removed and good hemostasis was achieved with the use of Angio-Seal. HEMODYNAMICS: Left ventricular end-diastolic pressure is 18 mmHg prior to angiography. No gradient is noted across the aortic valve. Moderate sedation was used. Total sedation time was 18 minutes. Left main coronary artery is normal and patent. LAD is a good caliber blood vessel and gives rise to good size diagonal branch. LAD and its branches are normal. Circumflex coronary artery is dominant in distribution and gives rise to the posterior descending artery as well as good size PLV branch. Circumflex coronary artery and its branches are normal. Right coronary artery is small and nondominant. FINAL IMPRESSION: This study reveals normal coronary arteries. Left ventricular end-diastolic pressure is 18 mmHg. RECOMMENDATIONS: Medical treatment and risk factor modification. MMODL / IJN: [id number] /
--- NOTE | 2018-08-16 14:22 | P.DS ---
Providers Date of admission: 08/15/18 05:27 Expected date of discharge: 08/16/18 Attending physician: Stephen Castaneda MD Consults: 08/15/18 05:27 Consult Physician Urgent Consulting Provider: [facility] Consult Reason/Comments: chest pain - high risk Do you want consulting provider notified?: Yes, Notify in am Primary care physician: Anastasia Cano Hospital Course: Discharge diagnosis - unstable angina - Diabetes mellitus - Hyperlipidemia - Sleep apnea - GERD Hospital course his is a very pleasant 47-year-old gentleman with a past medical history significant for sleep apnea, GERD, dyslipidemia, diabetes comes in with complaints of chest pain. Patient says that he's been having coughing for the past few days. Yesterday at about 11 PM at night he started feeling heavy sensation in the left side of the chest which is radiating to his left neck and jaw. He had this symptoms the day before as well which prompted him to come to the ER for further evaluation and management. Patient denied any association shortness of breath, no diaphoresis, no racing heart, no nausea and vomiting, no diarrhea constipation, no abdominal pain, no tingling numbness on his extremities, and additional rest. Patient says that he was given nitroglycerin in the ER and the pain went away. At the time examination the patient was having no pain and he was sitting comfortably and was asking questions, and comfortably. ER course-patient's vitals were stable. Labwork was done which showed WBC 8.8 hemoglobin 13.6 platelets 164 sodium 140 potassium 3.9 creatinine 0.71 GFR more than 90 tropes were negative EKG shows no acute changes and left axis deviation. Chest x-ray was negative for any acute process. Patient was thus admitted to the hospitalist service a further evaluation and management with cardiology consult. Patient had a cardiac cath this morning which was negative On 08/16/2018 Patient says that he's feeling better. He is having mild soreness in the groin secondary to the heart cath as he just came back from the heart cath otherwise no flank pain, no cough no shortness of breath, no more chest pain, no tingling numbness on in the extremities, and additional rash On exam, alert and oriented x3. HEENT: Conjunctivae normal. eyes normal. NECK: No JVD. No thyroid enlargement. No LNs CARDIOVASCULAR: S1-S2 positive Respiratory : Breath sounds normal, no crackles. No bronchial breathing. ABDOMEN: Soft, nontender . No guarding. no masses palpable. No ascites, No hepatosplenomegaly.Bowel sounds heard. LEGS: No edema. no swelling NERVOUS SYSTEM: Cranial N 2-12 grossly normal. Moves all 4 limbs. No focal deficits. No sensory deficit. No signs of cerebellar dysfucntion. Skin: no ulcer no rash Patient will be discharged when cleared by cardiology Medical treatment and his fasting modification was recommended by cardiology Patient will need to follow with cardiology and with the PCP as dictated below in the discharge summary Patient Condition at Discharge: Stable Plan - Discharge Summary Discharge Rx Participant: Yes New Discharge Prescriptions: New Rosuvastatin [Crestor] 20 mg PO HS #90 tablet Aspirin [Adult Low Dose Aspirin EC] 81 mg PO DAILY #30 tablet.dr Batista Cyanocobalamin [Vitamin B-12] 500 mcg PO HS Cholecalciferol [Vitamin D3 (25 Mcg = 1000 Iu)] 5,000 unit PO HS Calcium Citrate 250 mg PO HS Pioglitazone [Actos] 15 mg PO HS Multivitamin [Multivitamins Adult Gummies] 1 tab PO HS Febuxostat [Uloric] 40 mg PO HS Discontinued Simvastatin [Zocor] 20 mg PO HS Discharge Medication List Calcium Citrate 250 mg PO HS 09/30/15 [History] Cholecalciferol [Vitamin D3 (25 Mcg = 1000 Iu)] 5,000 unit PO HS 09/30/15 [History] Cyanocobalamin [Vitamin B-12] 500 mcg PO HS 09/30/15 [History] Multivitamin [Multivitamins Adult Gummies] 1 tab PO HS 06/25/16 [History] Pioglitazone [Actos] 15 mg PO HS 06/25/16 [History] Febuxostat [Uloric] 40 mg PO HS 06/21/17 [History] Aspirin [Adult Low Dose Aspirin EC] 81 mg PO DAILY #30 tablet. 08/16/18 [Rx] Rosuvastatin [Crestor] 20 mg PO HS #90 tablet 08/16/18 [Rx] Follow up Appointment(s)/Referral(s): Anastasia Cano DO [Primary Care Provider] - 1-2 days Baljinder Yepez MD [STAFF PHYSICIAN] - 2 Weeks ([facility] will call patient at home with appointment for a groin check. ) Activity/Diet/Wound Care/Special Instructions: If you experience any chest pains, racing heart, any increased shortness of breath or cough, any lightheadedness or dizziness, any syncope, any loss of vision or blurry vision, please call 911 and come to the ER Discharge Disposition: HOME SELF-CARE
[2018-08-16 14:35] VITALS: BP 128/61; PULSE 50
== END 2018-08-16 17:05 | disposition home or self-care (01) ==
LOC: EC 04:37 → 1SOBS 05:27
PROVIDERS: ADMIT Internal Medicine; ATTEND Internal Medicine
DX: I20.0 Unstable angina (principal); E11.9 Type 2 diabetes mellitus without complications; E78.5 Hyperlipidemia, unspecified; I08.2 Rheumatic disorders of both aortic and tricuspid valves; I10 Essential (primary) hypertension; E66.01 Morbid (severe) obesity due to excess calories; Z68.32 Body mass index [BMI] 32.0-32.9, adult; K21.9 Gastro-esophageal reflux disease without esophagitis; G47.33 Obstructive sleep apnea (adult) (pediatric); D86.9 Sarcoidosis, unspecified; M10.9 Gout, unspecified; R05 Cough; J34.89 Other specified disorders of nose and nasal sinuses; R00.1 Bradycardia, unspecified; Z79.84 Long term (current) use of oral hypoglycemic drugs; Z79.899 Other long term (current) drug therapy; Z99.89 Dependence on other enabling machines and devices; Z98.84 Bariatric surgery status; Z83.3 Family history of diabetes mellitus; Z80.42 Family history of malignant neoplasm of prostate; Z82.49 Family history of ischemic heart disease and other diseases of the circulatory system
CPT/HCPCS: 96360; 99285; 36415; 93306; 93458; 80061; 80053; 80048; 83735; 84484; 85025; 85027; 85610; 85730; 71046; 99152; G0378 ×2; C1760; C1894; C1769 ×2; J2001; J3010; Q9967; J2250

== ENCOUNTER → 2019-04-06 | Outpatient (CLI) | payer BC ==
[2019-04-06 16:30] LABS: HCT 42.2 % (39.0-53.0); HGB 14.3 gm/dL (13.0-17.5); MCH 31.3 pg (25.0-35.0); MCHC 33.8 g/dL (31.0-37.0); MCV 92.6 fL (80.0-100.0); Mean Platelet Volume 8.3; Platelet Count 172 k/uL (150-450); RBC 4.56 m/uL (4.30-5.90); RDW 12.3 % (11.5-15.5); WBC 8.6 k/uL (3.8-10.6)
== END | disposition home or self-care (01) ==
LOC: LABWHC1 15:43
PROVIDERS: ATTEND Orthopaedic Surgery
DX: Z01.812 Encounter for preprocedural laboratory examination (principal)
CPT/HCPCS: 36415; 83036; 85027; 87070

== ENCOUNTER → 2019-07-18 | Outpatient (CLI) | payer BC ==
[2019-07-18 09:36] LABS: HCT 39.9 % (39.0-53.0); HGB 12.8 gm/dL (13.0-17.5); MCH 30.3 pg (25.0-35.0); MCV 94.4 fL (80.0-100.0); Mean Platelet Volume 8.3; Platelet Count 157 k/uL (150-450); RBC 4.23 m/uL (4.30-5.90); RDW 12.6 % (11.5-15.5); WBC 7.9 k/uL (3.8-10.6)
[2019-07-18 18:20] LABS: Hemoglobin A1C 5.8 % (4.0-6.0)
== END | disposition home or self-care (01) ==
LOC: LABWHC1 08:13
PROVIDERS: ATTEND Orthopaedic Surgery
DX: Z01.818 Encounter for other preprocedural examination (principal); Z01.812 Encounter for preprocedural laboratory examination
CPT/HCPCS: 36415; 83036; 85027; 87070

== ENCOUNTER → 2019-11-27 | Outpatient (CLI) | payer BC ==
[2019-11-27 14:57] VITALS: BP 131/78; PULSE 92; TEMP 97.9; BMI 31.8
[2019-11-27 15:34] LABS: HGB 13.6 gm/dL (13.0-17.5); MCH 31.5 pg (25.0-35.0); MCHC 33.9 g/dL (31.0-37.0); Mean Platelet Volume 7.5; Platelet Count 173 k/uL (150-450); RDW 13.6 % (11.5-15.5); WBC 7.5 k/uL (3.8-10.6)
--- NOTE | 2019-11-27 15:35 | P.HPBAR ---
Bariatric H&P - History & Physicial H&P Date: 11/27/19 History & Physicial: Visit/CC: annual follow up Patient initial contact: Initial weight: 102.648 kg Initial weight in pounds: 226.30 Height: 6 ft Initial BMI: 30.7 Last weight: Current weight: 106.594 kg Current weight in pounds: 235.00 Current BMI: 31.8 [place] body weight (based on NIH guidelines): 80.739 kg Excess body weight loss: The patient is a 49 year-old M who presents for Bariatric Assessment. Patient presents today for sleeve gastrectomy fall. He's had some mild GERD. Past Medical History Past Medical History: Diabetes Mellitus, GERD/Reflux, Hyperlipidemia, Sleep Apnea/CPAP/BIPAP Additional Past Medical History / Comment(s): BRONCHOSCOPY FOR SARCOIDOSIS, GOUT, SLEEP APNEA WITH C-PAP MACHINE, CURRENTLY HAS A COUGH AND RUNNY NOSE- TESSILON PRESCRIBED BY ITALO Recio- INSTRUCTED PT TO CALL DR ZHENG AND INFORM HIM OFTHIS. PT STATES HE HAD CHESTPAIN ON 04/14 AND WENT TO [facility] AND WAS ADMITTED -STATES THEY RULED OUT HEART PROBLEMS. History of Any Multi-Drug Resistant Organisms: None Reported Past Surgical History: Bariatric Surgery, Orthopedic Surgery Additional Past Surgical History / Comment(s): BRONCHOSCOPY, 3 KNEE SURGERYS, gastric sleeve (Dr. Zheng) Past Anesthesia/Blood Transfusion Reactions: No Reported Reaction Past Psychological History: No Psychological Hx Reported Smoking Status: Never smoker Past Alcohol Use History: Occasional Past Drug Use History: None Reported - Past Family History Father Family Medical History: Cancer Additional Family Medical History / Comment(s): PROSTATE CA Surgical - Exam Vital Signs Temp Pulse BP 97.9 F 92 131/78 11/27/19 14:55 11/27/19 14:55 11/27/19 14:55 - General well developed, well nourished, no distress - Eyes PERRL - ENT normal pinna - Neck no masses - Respiratory normal expansion - Cardiovascular Rhythm: regular - Abdomen Abdomen: soft, non tender Bariatric Assessment & Plan Plan: Status post sleeve yesterday. Patient's morbid obesity is improved. His BMI is 32. His GERD is minimal observed. Bariatric Checklist Checklist: Plan: Checklist: EGD: 1. Hiatal hernia: 2. H. Pylori: HgbA1c: Vitamin D: Smoking: Never smoker Primary care physician referral: Anastasia Cano ([place]) Psychiatry clearance: Cardiology clearance: Sleep study: Diet journal: VTE risk score: VTE risk level: Rehab needs at discharge:
[2019-11-28 03:45] LABS: African American GFR (CKD) 114.2 (60.0-200.0); Albumin 4.3 g/dL (3.80-4.90); Albumin/Globulin Ratio 1.79 (1.60-3.17); Anion Gap 10.7 mmol/L (4.00-12.00); BUN/Creat Ratio 17.78 Ratio (12.00-20.00); Calcium 9.1 mg/dL (8.7-10.3); Carbon Dioxide 25.3 mmol/L (21.6-31.8); Globulin 2.4 g/dL (1.6-3.3); Non-African American GFR(CKD) 98.5 (60.0-200.0); Potassium 4.5 mmol/L (3.5-5.5); Total Bilirubin 0.7 mg/dL (0.2-1.2); Total Protein 6.7 g/dL (6.2-8.2)
== END | disposition home or self-care (01) ==
LOC: BARWHC3 14:01
PROVIDERS: ATTEND Surgery
DX: Z48.815 Encounter for surgical aftercare following surgery on the digestive system (principal); Z72.89 Other problems related to lifestyle; Z98.84 Bariatric surgery status
CPT/HCPCS: 80053; 82306; 82607; 82746; 84425; 84443; 85027; 99211

== ENCOUNTER 2020-08-30 06:04 | Day surgery (SDC) | payer BC ==
[2020-08-28 13:19] VITALS: BMI 33.0
[~2020-08-30 06:04] MED LIST: LACTATED RINGERS 1,000 ML IV SCH; LIDOCAINE 1% (10MG/ML) FOR IV START INTRADERMA PRN
[2020-08-30] MEDS ORDERED: LACTATED RINGERS 1,000 ML IV ONE (06:16)
[2020-08-30 06:18] VITALS: TEMP 97.1
[2020-08-30 06:27] LABS: Glucose,Whole Blood 118 mg/dL (75-99)
[2020-08-30] MEDS ORDERED: PROPOFOL 10 MG/ML 20 ML VIAL IV ONE (06:41)
[2020-08-30] MEDS ORDERED: LIDOCAINE 1% INJ 10MG/ML (20 ML MDV) ONE (06:41)
[2020-08-30 07:03] VITALS: RESP 16
--- NOTE | 2020-08-30 07:04 | P.PCN ---
Date of Procedure: 08/30/20 Procedure(s) Performed: BRIEF HISTORY: Patient is a 49-year-old pleasant male scheduled for an elective colonoscopy as a part of screening for colorectal neoplasia. PROCEDURE PERFORMED: Colonoscopy. PREOPERATIVE DIAGNOSIS: Screening for colon cancer. IV sedation per Anesthesia. PROCEDURE: After informed consent was obtained, the patient, was brought into the endoscopy unit. IV sedation was administered by Anesthesia under continuous monitoring. Digital rectal examination was normal. Initially the Olympus CF-160 flexible video colonoscope was then inserted in the rectum, gradually advanced into the cecum without any difficulty. Careful examination was performed as the scope was gradually being withdrawn. Ileocecal valve and the appendiceal orifice were visualized and appeared normal. Prep was excellent. Mucosa of the cecum, ascending colon, transverse colon, descending colon, sigmoid colon, and rectum appeared normal. Retroflexion was performed in the rectum and no lesions were seen. The patient tolerated the procedure well. IMPRESSION: Normal-appearing colon from rectum to cecum with no evidence of colorectal neoplasia . RECOMMENDATIONS: Findings of this examination were discussed with the patient as his family. He was advised to have a repeat screening colonoscopy in 10 ye ars.
[2020-08-30 07:21] VITALS: BP 120/80; PULSE 54
== END 2020-08-30 07:41 | disposition home or self-care (01) ==
LOC: ORWHC2ENDO 06:04
PROVIDERS: ATTEND Internal Medicine Gastroenterology
DX: Z12.11 Encounter for screening for malignant neoplasm of colon (principal); E78.5 Hyperlipidemia, unspecified; G47.33 Obstructive sleep apnea (adult) (pediatric); M10.9 Gout, unspecified; K21.9 Gastro-esophageal reflux disease without esophagitis; Z79.84 Long term (current) use of oral hypoglycemic drugs; Z79.82 Long term (current) use of aspirin; Z79.899 Other long term (current) drug therapy
CPT/HCPCS: J2001; J2704; G0121

== ENCOUNTER → 2020-11-18 | Outpatient (CLI) | payer BC ==
[2020-11-18 13:30] VITALS: BP 135/81; PULSE 49; RESP 16; TEMP 97.1; BMI 34.5
[2020-11-18 15:08] LABS: HCT 38.5 % (39.0-53.0); HGB 13.3 gm/dL (13.0-17.5); MCHC 34.7 g/dL (31.0-37.0); MCV 92.3 fL (80.0-100.0); Mean Platelet Volume 8.6; Platelet Count 168 k/uL (150-450); RBC 4.17 m/uL (4.30-5.90); RDW 12.8 % (11.5-15.5)
--- NOTE | 2020-11-18 16:53 | P.HPBAR ---
Bariatric H&P - History & Physicial H&P Date: 11/18/20 History & Physicial: Visit/CC: F/U Patient initial contact: Initial weight: 102.648 kg Initial weight in pounds: 226.30 Height: 6 ft Initial BMI: 30.7 Last weight: Current weight: 115.666 kg Current weight in pounds: 255.00 Current BMI: 34.5 [place] body weight (based on NIH guidelines): 80.739 kg Excess body weight loss: The patient is a 50 year-old M who presents for Bariatric Assessment. Patient resents today for bariatric follow-up. He's had some weight gain. He's had minimal GERD. Past Medical History Past Medical History: Diabetes Mellitus, GERD/Reflux, Hyperlipidemia, Sleep Apnea/CPAP/BIPAP Additional Past Medical History / Comment(s): BRONCHOSCOPY FOR SARCOIDOSIS, GOUT, SLEEP APNEA WITH C-PAP MACHINE, CURRENTLY HAS A COUGH AND RUNNY NOSE- TE SSILON PRESCRIBED BY ITALO AZAR POzzy- INSTRUCTED PT TO CALL DR ZHENG AND INFORM HIM OFTHIS. PT STATES HE HAD CHESTPAIN ON 04/14 AND WENT TO [facility] AND WAS ADMITTED -STATES THEY RULED OUT HEART PROBLEMS. History of Any Multi-Drug Resistant Organisms: None Reported Past Surgical History: Bariatric Surgery, Orthopedic Surgery Additional Past Surgical History / Comment(s): BRONCHOSCOPY, 3 KNEE SURGERYS, gastric sleeve (Dr. Zheng) Past Anesthesia/Blood Transfusion Reactions: No Reported Reaction Past Psychological History: No Psychological Hx Reported Smoking Status: Never smoker Past Alcohol Use History: Occasional Past Drug Use History: None Reported - Past Family History Father Family Medical History: Cancer Additional Family Medical History / Comment(s): PROSTATE CA Surgical - Exam Vital Signs Temp Pulse Resp BP 97.1 F L 49 L 16 135/81 11/18/20 13:27 11/18/20 13:27 11/18/20 13:27 11/18/20 13:27 - General well developed, well nourished, no distress - Eyes PERRL - ENT normal pinna - Neck no masses - Respiratory normal expansion - Cardiovascular Rhythm: regular - Abdomen Abdomen: soft, non tender Results - Labs 11/18/20 14:26 Abnormal Lab Results - Last 24 Hours (Table) 11/18/20 Range/Units 14:26 RBC 4.17 L (4.30-5.90) m/uL Hct 38.5 L (39.0-53.0) % Bariatric Assessment & Plan Plan: Status post sleeve history. Patient is minimal observed. He'll follow-up in 2 months. Bariatric Checklist Checklist: Plan: Checklist: EGD: 1. Hiatal hernia: 2. H. Pylori: HgbA1c: Vitamin D: Smoking: Never smoker Primary care physician referral: Anastasia Cano ([place]) Psychiatry clearance: Cardiology clearance: Sleep study: Diet journal: VTE risk score: VTE risk level: Rehab needs at discharge:
[2020-11-18 21:29] LABS: Folate, Serum 18.2 ng/mL (4.40-31.00)
[2020-11-19 07:57] LABS: Albumin 4.6 g/dL (3.8-4.9); Albumin/Globulin Ratio 1.64 (1.60-3.17); Anion Gap 10.4 mmol/L (4.00-12.00); BUN/Creat Ratio 11.5 Ratio (12.00-20.00); Blood Urea Nitrogen 9.2 mg/dL (9.0-27.0); Calcium 9.3 mg/dL (8.7-10.3); Carbon Dioxide 25.6 mmol/L (21.6-31.8); Globulin 2.8 g/dL (1.6-3.3); Non-African American GFR(CKD) 102.7 (60.0-200.0); Potassium 3.9 mmol/L (3.5-5.5); Total Bilirubin 0.6 mg/dL (0.30-1.20); Total Protein 7.4 g/dL (6.2-8.2)
[2020-11-19 14:02] LABS: Zinc, Serum 82 ug/dL (60-130)
[2020-11-19 18:23] LABS: % Iron Saturation 23.7 (15.00-50.00)
[2020-11-20 05:51] LABS: Vitamin A 60 ug/dL (38-106)
[2020-11-20 06:02] LABS: Vit B1(Thiamine) 84 ug/L (38-122)
== END ==
LOC: BARWHC3 13:11
PROVIDERS: ATTEND Surgery
DX: Z09 Encounter for follow-up examination after completed treatment for conditions other than malignant neoplasm (principal); E11.9 Type 2 diabetes mellitus without complications; E78.5 Hyperlipidemia, unspecified; K21.9 Gastro-esophageal reflux disease without esophagitis; Z98.84 Bariatric surgery status
CPT/HCPCS: 36415; 80053; 82306; 82607; 82728; 82746; 83540; 83550; 83735; 84255; 84425; 84443; 84590; 84630; 85027; 99211

== ENCOUNTER → 2022-01-12 | Outpatient (CLI) | payer BC ==
[2022-01-12 13:31] VITALS: BP 133/85; PULSE 85; TEMP 98.6; BMI 34.0
--- NOTE | 2022-01-12 14:25 | P.HPBAR ---
Bariatric H&P - History & Physicial H&P Date: 01/12/22 History & Physicial: Visit/CC: sleeve yearly F/U Patient initial contact: Initial weight: 102.648 kg Initial weight in pounds: 226.30 Height: 6 ft Initial BMI: 30.7 Last weight: Current weight: 113.852 kg Current weight in pounds: 251.00 Current BMI: 34.0 [place] body weight (based on NIH guidelines): 80.739 kg Excess body weight loss: The patient is a 51 year-old M who presents for Bariatric Assessment. Patient resents today for sleeve gastrectomy fall. He has had minimal GERD. His weight loss has stabilized. Past Medical History Past Medical History: Diabetes Mellitus, GERD/Reflux, Hyperlipidemia, Sleep Apnea/CPAP/BIPAP Additional Past Medical History / Comment(s): BRONCHOSCOPY FOR SARCOIDOSIS, GOUT, SLEEP APNEA WITH C-PAP MACHINE, CURRENTLY HAS A COUGH AND RUNNY NOSE- TESSILON PRESCRIBED BY ITALO Recio- INSTRUCTED PT TO CALL DR ZHENG AND INFORM HIM OFTHIS. PT STATES HE HAD CHESTPAIN ON 04/14 AND WENT TO [facility] AND WAS ADMITTED -STATES THEY RULED OUT HEART PROBLEMS. History of Any Multi-Drug Resistant Organisms: None Reported Past Surgical History: Bariatric Surgery, Orthopedic Surgery Additional Past Surgical History / Comment(s): BRONCHOSCOPY, 3 KNEE SURGERYS, gastric sleeve (Dr. Zheng) Past Anesthesia/Blood Transfusion Reactions: No Reported Reaction Past Psychological History: No Psychological Hx Reported Smoking Status: Never smoker Past Alcohol Use History: Occasional Past Drug Use History: None Reported - Past Family History Father Family Medical History: Cancer Additional Family Medical History / Comment(s): PROSTATE CA Surgical - Exam Vital Signs Temp Pulse BP 98.6 F 85 133/85 01/12/22 13:24 01/12/22 13:24 01/12/22 13:24 - General well developed, well nourished, no distress - Eyes PERRL - ENT normal pinna - Neck no masses - Respiratory normal expansion - Cardiovascular Rhythm: regular - Abdomen Abdomen: soft, non tender Bariatric Assessment & Plan Plan: Resolving morbid obese. Patient's BMI is 34. Patient's GERD is minimal will be observed. He will have bariatric labs performed today. He'll follow-up in 12 months. Bariatric Checklist Checklist: Plan: Checklist: EGD: 1. Hiatal hernia: 2. H. Pylori: HgbA1c: Vitamin D: Smoking: Never smoker Primary care physician referral: Anastasia Cano ([place]) Psychiatry clearance: Cardiology clearance: Sleep study: Diet journal: VTE risk score: VTE risk level: Rehab needs at discharge:
[2022-01-12 23:50] LABS: HCT 40.9 % (39.6-50.0); HGB 13.6 g/dL (13.0-17.0); MCH 31.1 pg (27.0-32.0); MCHC 33.3 g/dL (32.0-37.0); MCV 93.6 fL (80.0-97.0); Mean Platelet Volume 11.2 fL (9.5-12.2); NRBC Per 100 WBC 0 /100 WBCS (0.0-0.0); Platelet Count 170 X 10*3/uL (140-440); RBC 4.37 X 10*6/uL (4.40-5.60); RDW 12.2 % (11.5-14.5); WBC 7.13 X 10*3/uL (4.50-10.00)
[2022-01-13 01:13] LABS: % Iron Saturation 22.94 (15.00-50.00); African American GFR (CKD) 113.8 (60.0-200.0); Albumin 4.5 g/dL (3.8-4.9); Albumin/Globulin Ratio 1.68 (1.60-3.17); Anion Gap 11.1 mmol/L (10.00-18.00); BUN/Creat Ratio 15.39 Ratio (12.00-20.00); Blood Urea Nitrogen 13.5 mg/dL (9.0-27.0); Calcium 9.4 mg/dL (8.7-10.3); Carbon Dioxide 26.6 mmol/L (20.0-27.5); Globulin 2.7 g/dL (1.6-3.3); Non-African American GFR(CKD) 98.2 (60.0-200.0); Total Bilirubin 0.7 mg/dL (0.30-1.20); Total Protein 7.2 g/dL (6.2-8.2)
[2022-01-14 15:29] LABS: Zinc, Serum 98 ug/dL (60-130)
[2022-01-15 09:16] LABS: Vitamin A 63 ug/dL (38-106)
== END ==
LOC: BARWHC3 13:14
PROVIDERS: ATTEND Surgery
DX: E66.01 Morbid (severe) obesity due to excess calories (principal); D50.8 Other iron deficiency anemias; E55.9 Vitamin D deficiency, unspecified; T56.894A Toxic effect of other metals, undetermined, initial encounter; K90.9 Intestinal malabsorption, unspecified; Z68.34 Body mass index [BMI] 34.0-34.9, adult
CPT/HCPCS: 80053; 82306; 82607; 82728; 82746; 83540; 83550; 83735; 84255; 84425; 84443; 84590; 84630; 85027; 99211

== ENCOUNTER → 2023-01-18 | Outpatient (CLI) | payer BC ==
[2023-01-18 12:01] VITALS: BP 130/83; PULSE 67; TEMP 97.8; BMI 33.5
--- NOTE | 2023-04-06 11:50 | P.HPBAR ---
Bariatric H&P - History & Physicial H&P Date: 01/18/23 History & Physicial: Visit/CC: sleeve F/U Patient initial contact: Initial weight: 102.648 kg Initial weight in pounds: 226.30 Height: 6 ft Initial BMI: 30.7 Last weight: Current weight: 112.037 kg Current weight in pounds: 247.00 Current BMI: 33.5 [place] body weight (based on NIH guidelines): 80.739 kg Excess body weight loss: The patient is a 52 year-old M who presents for Bariatric Assessment. Patient presents today for sleeve gastrectomy follow-up. Patient has diabetes and some mild GERD symptoms. Patient says blood sugar has been under good control. His gerd has been mild. He is lost 4 pounds since the last visit. Past Medical History Past Medical History: Diabetes Mellitus, GERD/Reflux, Hyperlipidemia, Sleep Apnea/CPAP/BIPAP Additional Past Medical History / Comment(s): BRONCHOSCOPY FOR SARCOIDOSIS, GOUT, SLEEP APNEA WITH C-PAP MACHINE, CURRENTLY HAS A COUGH AND RUNNY NOSE- TESSILON PRESCRIBED BY ITLAO Recio- INSTRUCTED PT TO CALL DR ZHENG AND INFORM HIM OFTHIS. PT STATES HE HAD CHESTPAIN ON 04/14 AND WENT TO [facility] AND WAS ADMITTED -STATES THEY RULED OUT HEART PROBLEMS. History of Any Multi-Drug Resistant Organisms: None Reported Past Surgical History: Bariatric Surgery, Orthopedic Surgery Additional Past Surgical History / Comment(s): BRONCHOSCOPY, 3 KNEE SURGERYS, gastric sleeve (Dr. Zheng) Past Anesthesia/Blood Transfusion Reactions: No Reported Reaction Past Psychological History: No Psychological Hx Reported Smoking Status: Never smoker Past Alcohol Use History: Occasional Past Drug Use History: None Reported - Past Family History Father Family Medical History: Cancer Additional Family Medical History / Comment(s): PROSTATE CA Surgical - Exam Vital Signs Temp Pulse BP 97.8 F 67 130/83 01/18/23 11:46 01/18/23 11:46 01/18/23 11:46 - General well developed, well nourished, no distress - Eyes PERRL - ENT normal pinna - Neck no masses - Respiratory normal expansion - Cardiovascular Rhythm: regular - Abdomen Abdomen: soft, non tender Bariatric Assessment & Plan Plan: Patient will be observed. His gerd is minimal and will be followed. He will follow-up with PCP with his diabetes. Bariatric Checklist Checklist: Plan: Checklist: EGD: 1. Hiatal hernia: 2. H. Pylori: HgbA1c: Vitamin D: Smoking: Never smoker Primary care physician referral: Anastasia Cano ([place]) Psychiatry clearance: Cardiology clearance: Sleep study: Diet journal: VTE risk score: VTE risk level: Rehab needs at discharge:
== END ==
LOC: BARWHC3 11:30
PROVIDERS: ATTEND Surgery
DX: Z53.9 Procedure and treatment not carried out, unspecified reason (principal)
CPT/HCPCS: 99211

== ENCOUNTER 2024-01-03 08:46 | Emergency (ER) | payer BC ==
--- NOTE | 2024-01-03 09:47 | US ---
EXAMINATION TYPE: US venous doppler duplex LE LT DATE OF EXAM: 01/03/2024 9:29 AM COMPARISON: [id number] CLINICAL INDICATION: Male, 53 years old with history of eval for dvt/bakers cyst. popliteal pain/swel ling; left leg pain and edema for 5 days, getting worse TECHNIQUE: The lower extremity deep venous system is examined utilizing real time linear array sonog jose c with graded compression, color doppler sonography, and spectral doppler. SIDE PERFORMED: left FINDINGS: VESSELS IMAGED: Common Femoral Vein Deep Femoral Vein Greater Saphenous Vein * Femoral Vein Popliteal Vein Small Saphenous Vein * Proximal Calf Veins (* superficial vessels) Left Leg: No evidence of DVT, Color Doppler imaging shows patency of the vessels. Spectral waveforms are within normal limits. Complex anechoic lesion left popliteal fossa = 5.4 x 1.4 x 2.9cm ?Hill's cyst IMPRESSION: 1. No ultrasound evidence for deep venous thrombosis. 2. Popliteal fossa cyst. [facility], , 01/03/2024 9:45 AM
--- NOTE | 2024-01-03 10:28 | ED ---
General Adult HPI - General Chief complaint: Extremity Injury, Lower Stated complaint: L leg issue Time Seen by Provider: 01/03/24 08:55 Source: patient, RN notes reviewed, old records reviewed Mode of arrival: ambulatory Limitations: no limitations - History of Present Illness Initial comments: Patient is a 53-year-old male who presents emergency department complaining of left popliteal space swelling and pain. States the pain started almost a week ago. Denies any obvious injury. It is localized pain. No significant edema of the left leg. No history of blood clots. Denies any fevers or chills. History of diabetes and hyperlipidemia. Presents for further evaluation at this time for the left posterior knee swelling. Has normal range of motion but has tenderness at the site. Denies any obvious injury or trauma. - Related Data Home Medications Medication Instructions Recorded Confirmed Calcium Citrate 250 mg PO HS 09/30/15 01/18/23 Cholecalciferol [Vitamin D3 (25 5,000 unit PO HS 09/30/15 01/18/23 Mcg = 1000 Iu)] Febuxostat [Uloric] 40 mg PO HS 06/21/17 01/18/23 Dulaglutide [Trulicity] 1.5 mg SQ COOPER 08/28/20 01/18/23 Multivitamin with Iron 1 each PO BID 08/28/20 01/18/23 [Multivitamins with Iron] Cyanocobalamin (Vitamin B-12) 1,000 mcg PO WEEKLY 01/12/22 01/18/23 [Vitamin B-12] Previous Rx's Medication Instructions Recorded Aspirin [Adult Low Dose Aspirin EC] 81 mg PO DAILY #30 tablet. 08/16/18 Rosuvastatin [Crestor] 20 mg PO HS #90 tablet 08/16/18 Allergies Allergy/AdvReac Type Severity Reaction Status Date / Time No Known Allergies Allergy Verified 01/03/24 08:50 Review of Systems ROS Statement: Those systems with pertinent positive or pertinent negative responses have been documented in the HPI. Review of Systems: CONST: Denies fever EYES: Denies blurry vision ENT: Denies nasal congestion C/V: Denies Chest pain RESP: Denies shortness of breath GI: Denies abdominal pain : Denies dysuria SKIN: Denies rash. MSK: Denies joint pain. NEURO: Denies headache ROS Other: All systems not noted in ROS Statement are negative. Past Medical History Past Medical History: Diabetes Mellitus, GERD/Reflux, Hyperlipidemia, Sleep Apnea/CPAP/BIPAP Additional Past Medical History / Comment(s): BRONCHOSCOPY FOR SARCOIDOSIS, GOUT, SLEEP APNEA WITH C-PAP MACHINE, CURRENTLY HAS A COUGH AND RUNNY NOSE- TESSILON PRESCRIBED BY ITALO Recio- INSTRUCTED PT TO CALL DR ZHENG AND INFORM HIM OFTHIS. PT STATES HE HAD CHESTPAIN ON 04/14 AND WENT TO [facility] AND WAS ADMITTED -STATES THEY RULED OUT HEART PROBLEMS. History of Any Multi-Drug Resistant Organisms: None Reported Past Surgical History: Bariatric Surgery, Orthopedic Surgery Additional Past Surgical History / Comment(s): BRONCHOSCOPY, 3 KNEE SURGERYS, gastric sleeve (Dr. Zheng) Past Anesthesia/Blood Transfusion Reactions: No Reported Reaction Past Psychological History: No Psychological Hx Reported Smoking Status: Never smoker Past Alcohol Use History: Occasional Past Drug Use History: None Reported - Past Family History Father Family Medical History: Cancer Additional Family Medical History / Comment(s): PROSTATE CA General Exam - General Exam Comments Initial Comments: General: Appears in no acute distress. HEAD: Normal with no signs of head trauma. EYES: EOMI. ENT: Hearing grossly intact. RESPIRATORY: No respiratory distress. C/V: Regular rate and rhythm. ABD: Abdomen is nondistended. EXT: No obvious deformity. Neurovasc intact throughout the left lower extremity. No knee tenderness to palpation. Normal range of motion. SKIN: Left popliteal swelling, concern for likely Hill's cyst. NEURO: Alert and oriented. Limitations: no limitations Course Vital Signs 01/03/24 01/03/24 08:47 10:48 Temperature 97.6 F 98.1 F Pulse Rate 60 66 Respiratory 20 18 Rate Blood Pressure 125/68 110/71 O2 Sat by Pulse 98 66 L Oximetry Medical Decision Making - Medical Decision Making Was pt. sent in by a medical professional or institution (, PA, BRUSH FINISHER, urgent care, hospital, or senior living...) When possible be specific @ -No Did you speak to anyone other than the patient for history (EMS, parent, family, police, friend...)? What history was obtained from this source @ -No Did you review nursing and triage notes (agree or disagree)? Why? @ -I reviewed and agree with nursing and triage notes Were old charts reviewed (outside hosp., previous admission, EMS record, old EKG, old radiological studies, urgent care reports/EKG's, senior living records)? Report findings @ -No old charts were reviewed Differential Diagnosis (chest pain, altered mental status, abdominal pain women, abdominal pain men, vaginal bleeding, weakness, fever, dyspnea, syncope, headache, dizziness, GI bleed, back pain, seizure, CVA, palpatations, mental health, musculoskeletal)? @ -DVT, Hill's cyst. This list is not all inclusive. EKG interpreted by me (3pts min.). @ -None done X-rays interpreted by me (1pt min.). @ -None done CT interpreted by me (1pt min.). @ -None done U/S interpreted by me (1pt. min.). @ -Left lower extremity ultrasound consistent with what appears to be Hill's cyst. No evidence of DVT. What testing was considered but not performed or refused? (CT, X-rays, U/S, labs)? Why? @ -None What meds were considered but not given or refused? Why? @ -I offered analgesia medications which were declined by the patient. Did you discuss the management of the patient with other professionals (professionals i.e. , PA, BRUSH FINISHER, lab, RT, psych nurse, social studies teacher, moving picture producer, teacher, sheriff's officer, outsole caser)? Give summary @ -No Was smoking cessation discussed for >3mins.? @ -No Was critical care preformed (if so, how long)? @ -No Were there social determinants of health that impacted care today? How? (Homelessness, low income, unemployed, alcoholism, drug addiction, transportation, low edu. Level, literacy, decrease access to med. care, [facility], rehab)? @ -No Was there de-escalation of care discussed even if they declined (Discuss DNR or withdrawal of care, Hospice)? DNR status @ -No What co-morbidities impacted this encounter? (DM, HTN, Smoking, COPD, CAD, Cancer, CVA, ARF, Chemo, Hep., AIDS, mental health diagnosis, sleep apnea, morbid obesity)? @ -None Was patient admitted / discharged? Hospital course, mention meds given and route, prescriptions, significant lab abnormalities, going to OR and other pertinent info. @ -Patient presents with what appears to be a Hill's cyst of the left lower extremity however we will obtain ultrasound to confirm and rule out DVT. Vital signs otherwise within acceptable limits. No concern for PE at this time. Patient was in agreement this plan. I offered analgesia medications which were declined. Patient given an ice pack. Vitals are within acceptable limits. Ultrasound shows no evidence of DVT. Findings consistent with Hill's cyst. Discussed results with the patient. He expressed understanding. He will be discharged home this time with instruction to follow-up with PCP. Recommended ice, elevation, symptomatic relief with [id number] analgesia medications. Patient was in agreement this plan. Strict return precautions discussed. I instructed the patient to follow up with their PCP in the next 1-3 days. I explained that the patient should return to the emergency department if they experience any worsening symptoms. Strict return precautions were discussed with the patient. The patient expressed understanding of these instructions. I answered all questions that the patient had. The patient was discharged home in good condition with their prescriptions and follow up information. Undiagnosed new problem with uncertain prognosis? @ -No Drug Therapy requiring intensive monitoring for toxicity (Heparin, Nitro, Insulin, Cardizem)? @ -No Were any procedures done? @ -No Diagnosis/symptom? @ -Hill's cyst Acute, or Chronic, or Acute on Chronic? @ -Acute Uncomplicated (without systemic symptoms) or Complicated (systemic symptoms)? @ -Uncomplicated Side effects of treatment? @ -No Exacerbation, Progression, or Severe Exacerbation? @ -No Poses a threat to life or bodily function? How? (Chest pain, [place], [place], pneumonia, PE, COPD, DKA, ARF, appy, cholecystitis, CVA, Diverticulitis, Homicidal, Suicidal, threat to staff... and all critical care pts) @ -Unlikely Disposition Clinical Impression: Hill's cyst Disposition: HOME SELF-CARE Condition: Good Instructions (If sedation given, give patient instructions): Hill Cyst (ED) Additional Instructions: Ultrasound revealed a Hill's cyst of the left posterior knee. Follow-up with your PCP. [id number] analgesia medications including Motrin can be used for pain. Elevate, ice the area as well. Follow-up with your PCP in the next 1 to 3 days. Return if worsening symptoms. Is patient prescribed a controlled substance at d/c from ED?: No Referrals: Anastasia Cano DO [Primary Care Provider] - 1-2 days Time of Disposition: 10:25
[2024-01-03 10:49] VITALS: BP 110/71; PULSE 66; RESP 18; TEMP 98.1
== END 2024-01-03 10:49 | disposition home or self-care (01) ==
LOC: EC 08:46
DX: M71.22 Synovial cyst of popliteal space [Baker], left knee (principal)
CPT/HCPCS: 99283

== ENCOUNTER → 2024-09-11 | Outpatient (CLI) | payer BC ==
--- NOTE | 2024-09-11 12:30 | CT ---
EXAMINATION TYPE: CT abdomen pelvis wo con DATE OF EXAM: 09/11/2024 12:12 PM COMPARISON: None. CLINICAL INDICATION: Male, 53 years old with history of M54.50 LOW BACK PAIN, RT SIDED LOWER BACK DELIA N, SUSPECTED KIDNEY STONE TECHNIQUE: Axial images with sagittal coronal reformats. Examination of the solid and hollow viscera is limited given the lack of contrast. CT DLP: 1110 mGycm, Automated exposure control for dose reduction was used. FINDINGS: LUNG BASES: No evidence for nodule. No evidence for infiltrate. LIVER/GB: Small cholelithiasis noted. No space-occupying hepatic lesion. PANCREAS: No pancreatic mass identified. No inflammatory process seen. SPLEEN: No evidence for splenomegaly. No intrasplenic lesions seen. ADRENALS: No adrenal nodules identified. No evidence for thickening. KIDNEYS: No evidence for renal mass. No nephrolithiasis. No hydronephrosis. BOWEL: Postsurgical changes about the stomach. Appendix has a normal appearance. No evidence of bowel obstruction. No inflammatory process. Lymph nodes: No evidence for adenopathy greater than 1 cm. Abdominal aorta: Atheromatous changes seen. No evidence for aneurysm. Genital organs: No significant abnormality. Other: No significant abnormality. IMPRESSION: 1. No acute intra-abdominal process appreciated. [facility], , 09/11/2024 12:28 PM
== END | disposition home or self-care (01) ==
LOC: RADCTMAIN 11:40
PROVIDERS: ATTEND Nurse Practitioner
DX: M54.50 Low back pain, unspecified (principal)
CPT/HCPCS: 74176